=== PATIENT | female | born 1990 | race Caucasian/White ===

== ENCOUNTER 2017-03-26 13:54 | Emergency (ER) | payer MEDICAID, OTHER ==
[2017-03-26] MEDS ORDERED: NS 0.9% 1000 ML* 1,000 ML IV ONE (14:08)
[2017-03-26] MEDS ORDERED: Ondansetron INJ* 2 MG/ML VIAL IV ONE (14:08)
[2017-03-26 14:29] LABS: Hematocrit 40 % (35-47); Hemoglobin 13.3 g/dl (12.0-16.0); Mean Corpuscular HGB Conc 34 g/dl (31-36); Mean Corpuscular Hemoglobin 31 pg (27-31); Mean Corpuscular Volume 92 fL (80-97); Mean Platelet Volume 9 um3 (7.4-10.4); Red Blood Count 4.32 10^6/ul (4.0-5.4); Red Cell Distribution Width 13 % (10.5-15); White Blood Count 8.4 10^3/ul (3.5-10.8)
[2017-03-26 14:45] LABS: Albumin 4.5 g/dL (3.2-5.2); BUN/Creatinine Ratio 8.5 (8-20); Calcium 9.3 mg/dL (8.6-10.3); EGFR African American 106.8 (>60); Globulin 3.2 g/dL (2-4); Potassium 3.9 mmol/L (3.5-5.0); Total Bilirubin 0.4 mg/dL (0.2-1.0); Total Protein 7.7 g/dL (6.4-8.9)
--- NOTE | 2017-03-26 14:49 | RAD ---
HISTORY: Head trauma, scalp hematoma, headache COMPARISONS: None TECHNIQUE: Multiple contiguous axial CT scans were obtained of the head without intravenous contrast. FINDINGS: HEMORRHAGE/INFARCT: There is no hemorrhage or acute infarct. MASSES/SHIFT: There is no mass or shift. EXTRA-AXIAL SPACES: There are no extra-axial fluid collections. SULCI AND VENTRICLES: The sulci and ventricles are normal in size and position for the patient's stated age. CEREBRUM: There are no focal parenchymal abnormalities. BRAINSTEM: There are no focal parenchymal abnormalities. CEREBELLUM: There are no focal parenchymal abnormalities. VESSELS: The vessels are grossly normal. PARANASAL SINUSES: The paranasal sinuses are clear. ORBITS: The orbits are unremarkable. BONES AND SOFT TISSUE: There is minimal soft tissue swelling right frontal scalp OTHER: None IMPRESSION: NO ACUTE INTRACRANIAL PATHOLOGY.
[2017-03-26 15:03] VITALS: BP 124/72
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
== END 2017-03-26 15:36 | disposition home or self-care (01) ==
LOC: ED 13:54
DX: T40.1X1A Poisoning by heroin, accidental (unintentional), initial encounter (principal); T40.601A Poisoning by unspecified narcotics, accidental (unintentional), initial encounter; S00.03XA Contusion of scalp, initial encounter; R11.0 Nausea; R51 Headache; X58.XXXA Exposure to other specified factors, initial encounter; Y93.9 Activity, unspecified; Y92.9 Unspecified place or not applicable
CPT/HCPCS: 36415; 70450; 80053; 85027; 96374; 99282; J2405

== ENCOUNTER 2017-09-12 19:50 | Emergency (ER) | payer OTHER ==
[2017-09-12 19:54] VITALS: BP 142/72
--- NOTE | 2017-09-12 21:31 | RAD ---
HISTORY: Right knee pain, fall COMPARISONS: None VIEWS: 4, Frontal, lateral, axial, and oblique views of the right knee FINDINGS: BONE DENSITY: Normal. BONES: There is no displaced fracture. JOINTS: There is no arthropathy. There is no suprapatellar joint effusion or lipohemarthrosis. ALIGNMENT: There is no dislocation. SOFT TISSUES: Unremarkable. OTHER FINDINGS: None. IMPRESSION: NO ACUTE OSSEOUS INJURY. IF SYMPTOMS PERSIST, RECOMMEND REPEAT IMAGING.
--- NOTE | 2017-09-12 22:02 | ED ---
Lower Extremity - HPI Summary HPI Summary: 18 female presents with right knee pain since after a seizure. She states she has history of seizures. She denies any recent infection. She states she has been taking her gabapentin 3 times a day as prescribed. She states she has not had a seizure prior for a year. States she is weaning from Suboxone so may have caused seizure. She states she went down on her knee and her knee ended up behind her. She states when she ambulate she has pain on lateral and medial aspect of her knee. She states that her knee feels a little unstable. She denies any weakness. She denies any popping or locking. She denies any previous injury to the area. She denies any other injury. - History of Current Complaint Chief Complaint: EDExtremityLower Stated Complaint: RT KNEE INJURY Time Seen by Provider: 09/12/17 21:27 Pain Intensity: 4 - Allergies/Home Medications Allergies/Adverse Reactions: Allergies Allergy/AdvReac Type Severity Reaction Status Date / Time Penicillins Allergy Unknown Verified 09/12/17 19:55 Reaction Details Home Medications: Home Medications Gabapentin CAP(*) [Neurontin 400 mg CAP(*)] 800 mg PO TID 09/12/17 [History Confirmed 09/12/17] QUEtiapine TAB* [SEROquel TAB*] 100 mg PO BEDTIME 09/12/17 [History Confirmed ] buPROPion TAB* [Wellbutrin TAB*] 100 mg PO DAILY 09/12/17 [History Confirmed 07/28] cloNIDine TAB* [Catapres 0.1 MG TAB*] 0.1 mg PO DAILY 09/12/17 [History Confirmed 09/12/17] hydrOXYzine pamoate [Vistaril] 50 mg PO TID PRN 09/12/17 [History Confirmed 07/28] PMH/Surg Hx/FS Hx/Imm Hx Endocrine/Hematology History: Denies: Hx Diabetes Neurological History: Reports: Hx Seizures Psychiatric History: Reports: Other Psychiatric Issues/Disorders - Hx heroin overdoses Denies: Hx Eating Disorder, Hx of Violent Episodes Against Others Infectious Disease History: No Infectious Disease History: Denies: Traveled Outside the [place] in Last 30 Days - Family History Known Family History: Positive: Other - Substance abuse - Social History Alcohol Use: None Substance Use Type: Reports: Heroin Smoking Status (MU): Current Every Day Smoker Review of Systems Negative: Fever Negative: Chest Pain Negative: Shortness Of Breath Positive: Myalgia - right knee pain Neurological: Other - seizure All Other Systems Reviewed And Are Negative: Yes Physical Exam Triage Information Reviewed: Yes Vital Signs On Initial Exam: Initial Vitals Temp Pulse Resp BP Pulse Ox 99.1 F 99 13 142/72 100 09/12/17 19:52 09/12/17 19:52 09/12/17 19:52 09/12/17 19:52 09/12/17 19:52 Vital Signs Reviewed: Yes Appearance: Positive: Well-Appearing Skin: Positive: Warm, Dry Head/Face: Positive: Normal Head/Face Inspection Eyes: Positive: Normal, Conjunctiva Clear Respiratory/Lung Sounds: Positive: Clear to Auscultation, Breath Sounds Present Cardiovascular: Positive: Normal, RRR Musculoskeletal: Positive: Strength/ROM Intact - right knee, Other - good pulses , capillary refill<2 secs, tenderness over medial lateral aspect of the knee. Negative anterior drawer. pain with valgus and varus stress. Neurological: Positive: Normal Psychiatric: Positive: Normal Diagnostics - Vital Signs Vital Signs Temp Pulse Resp BP Pulse Ox 09/12/17 19:52 99.1 F 99 13 142/72 100 - Laboratory Lab Statement: Any lab studies that have been ordered have been reviewed, and results considered in the medical decision making process. - Radiology knee Xray Interpretation: No Acute Changes Radiology Interpretation Completed By: Radiologist Lower Extremity Course/Dx - Course Course Of Treatment: 18 female presents with right knee pain since after a seizure. She states she has history of seizures. She denies any recent infection. She states she has been taking her gabapentin 3 times a day as prescribed. She states she has not had a seizure prior for a year. States she is weaning from Suboxone so may have caused seizure. She states she went down on her knee and her knee ended up behind her. She states when she ambulate she has pain on lateral and medial aspect of her knee. She states that her knee feels a little unstable. She denies any weakness. She denies any popping or locking. She denies any previous injury to the area. patient declined any lab work for the seizures will have follow up with with primary about such. X-ray knee normal. Pain was about this and varus stress. Negative anterior drawer. Will follow up with ortho as may be meniscal injury. Told to keep the knee in immobilizer. Patient understands agrees with plan. - Diagnoses Differential Diagnosis/HQI/PQRI: Positive: Fracture (Closed), Sprain, Strain Provider Diagnoses: Seizure, Right knee injury Discharge - Sign-Out/Discharge Documenting (check all that apply): Discharge/Admit/Transfer - Discharge Plan Condition: Good Disposition: HOME Patient Education Materials: Knee Pain (ED) Referrals: Elise Nunez MD [Primary Care Provider] - Paola Mojica MD [Medical Doctor] - Additional Instructions: Follow up with primary about seizures Use immobilizer Stay off knee as much as possible Ice, elevate, Ibuprofen or Tylenol every 6 hours for pain Follow up with ortho if no improvement Return to ED if develop or any new or worsening symptoms - Billing Disposition and Condition Condition: GOOD Disposition: HOME
== END 2017-09-12 22:26 | disposition home or self-care (01) ==
LOC: ED 19:50
DX: S89.91XA Unspecified injury of right lower leg, initial encounter (principal); R56.9 Unspecified convulsions; F17.200 Nicotine dependence, unspecified, uncomplicated; Z88.0 Allergy status to penicillin
CPT/HCPCS: 99282

== ENCOUNTER 2018-01-20 11:37 | Emergency (ER) | payer OTHER ==
--- NOTE | 2018-01-20 13:33 | RAD ---
INDICATION: Fall; facial injury. COMPARISON: No relevant prior exams available on the [facility] [place] PACS for comparison. TECHNIQUE: Multidetector CT base of the skull through mandible without contrast. Multiplanar reformation. REPORT: Artifact from dental amalgam. RIGHT nasal bone fracture with approximate 1 mm depression. Overlying soft tissue swelling. The orbital and maxillary sinus margins, zygomatic arches, lamina papyracea, base of the maxilla, and pterygoid plates are intact. The mandible is intact. Normal temporal mandibular joint alignment. Degenerative arthropathy at the temporomandibular joints with subchondral sclerosis and cystic change. IMPRESSION: #. Minimally depressed RIGHT nasal bone fracture.
--- NOTE | 2018-01-20 13:46 | RAD ---
Indication: Fall with facial injury. Comparison: Maxillofacial CT of the same date and March 26, [address] Technique: Noncontrast CT vertex of skull through foramen magnum. Report: The sulci, ventricles, and basal cisterns are normal for age. Mack matter white matter differentiation is preserved without evidence for edema. No intra or extra axial hemorrhage is detected. Unremarkable visualized orbital contents. Negative for calvarial or skull base fracture. Negative for scalp hematoma. The visualized paranasal sinuses and mastoid air spaces are clear. IMPRESSION: #. No CT evidence for traumatic brain injury. Negative exam.
[2018-01-20 13:54] VITALS: BP 125/98
--- NOTE | 2018-01-20 15:17 | ED ---
Head Injury - HPI Summary HPI Summary: Patient is a 27-year-old female presenting to the ED 3 days after a facial injury. She states she had a seizure 3 days ago which was witnessed an approximately 5 minutes in length. She fell and hit the coffee table with her nose and arrives with ecchymosis around the bilateral eyes. She states this is her third witnessed seizure in the past year and a half. She has never been diagnosed with seizures. Family history of epilepsy, but she has never had seizures prior to the year and a half. She has never seen a neurologist. Patient states she takes Suboxone, but denies any other drug use. She states nothing changed over the past year and a half when she started getting seizures and are not related to her drug use as she has been on heroin and off heroin all all having the seizures. She states she feels well prior to having the seizures and states nothing makes them better or worse. She endorses some fatigue immediately following the probable seizure, but states feels otherwise well afterwards. Patient is a smoker, but denies any alcohol use. Facial injury from 3 days ago with bilateral nosebleed which lasted approximately 5 minutes, and has not returned over the past 3 days. - History Of Current Complaint Chief Complaint: EDFacialInjury Stated Complaint: FACIAL INJURY Time Seen by Provider: 01/20/18 11:57 Hx Obtained From: Patient Mechanism Of Injury: Blunt Trauma Onset/Duration: Started Days Ago Onset of Pain: Days Severity Currently: Moderate Severity Initially: Moderate Pain Intensity: 0 Pain Scale Used: 0-10 Numeric Location of Head Injury: Other: - nasal bones Character: Dull Aggravating Factor(s): Movement Alleviating Factor(s): Rest, Ice Associated Signs And Symptoms: Other: - seizure activity - Risk Factors SDH Risk Factor: Seizures - Allergies/Home Medications Allergies/Adverse Reactions: Allergies Allergy/AdvReac Type Severity Reaction Status Date / Time Penicillins Allergy Unknown Verified 01/20/18 11:56 Reaction Details Home Medications: Home Medications Buprenorphine HCl/Naloxone HCl [Suboxone 8 mg-2 mg Sl Film] 2 tab SL DAILY 01/20 [History Confirmed 01/20/18] Citalopram TAB* [CeleXA TAB*] 10 mg PO DAILY 01/20/18 [History Confirmed ] PMH/Surg Hx/FS Hx/Imm Hx Previously Healthy: Yes Endocrine/Hematology History: Denies: Hx Diabetes Neurological History: Reports: Hx Seizures Psychiatric History: Reports: Other Psychiatric Issues/Disorders - Hx heroin overdoses Denies: Hx Eating Disorder, Hx of Violent Episodes Against Others - Immunization History Hx Pertussis Vaccination: No Immunizations Up to Date: Yes Infectious Disease History: No Infectious Disease History: Denies: Traveled Outside the [place] in Last 30 Days - Family History Known Family History: Positive: Other - Substance abuse - Social History Occupation: Employed Full-time Lives: With Family Alcohol Use: Rare Hx Substance Use: Yes Substance Use Type: Reports: Prescribed, Other Substance Use Comment - Amount & Last Used: HX heroin, on Suboxone Hx Tobacco Use: Yes Smoking Status (MU): Current Every Day Smoker Review of Systems Constitutional: Negative Negative: Fever, Chills, Fatigue, Skin Diaphoresis Negative: Blurred Vision, Diplopia, Drainage Negative: Other - pain to the bridge of the nose Negative: Palpitations, Chest Pain Negative: Shortness Of Breath, Cough Genitourinary: Negative Positive: no symptoms reported, see HPI Negative: Arthralgia, Myalgia Positive: Bruising Neurological: Negative All Other Systems Reviewed And Are Negative: Yes Physical Exam Triage Information Reviewed: Yes Vital Signs On Initial Exam: Initial Vitals Temp Pulse Resp BP Pulse Ox 97.2 F 108 16 141/87 98 01/20/18 11:52 01/20/18 11:52 01/20/18 11:52 01/20/18 11:52 01/20/18 11:52 Vital Signs Reviewed: Yes Appearance: Positive: Well-Appearing, Well-Nourished Skin: Positive: Warm, Skin Color Reflects Adequate Perfusion, Other - bruising to the nose Head/Face: Positive: Normal Head/Face Inspection Eyes: Positive: EOMI, GREGOR, Conjunctiva Clear Neck: Positive: Supple Respiratory/Lung Sounds: Positive: Clear to Auscultation, Breath Sounds Present Cardiovascular: Positive: RRR, Pulses are Symmetrical in both Upper and Lower Extremities Musculoskeletal: Positive: Normal, Strength/ROM Intact Neurological: Positive: Sensory/Motor Intact, Alert, Oriented to Person Place, Time, Speech Normal Psychiatric: Positive: Normal, Affect/Mood Appropriate AVPU Assessment: Alert Diagnostics - Vital Signs Vital Signs Temp Pulse Resp BP Pulse Ox 01/20/18 13:53 97.2 F 80 16 125/98 100 09/10/18 11:52 97.2 F 108 16 141/87 98 - Laboratory Lab Statement: Any lab studies that have been ordered have been reviewed, and results considered in the medical decision making process. Head Injury Course/Dx Course Of Treatment: CT maxillofacial and CT brain obtained. CT brain without intracranial abnormalities. CT maxillofacial shows: Minimally depressed right nasal bone fracture. Discussed this with the patient. She will follow-up with ENT regarding the nasal bone fracture and I have Darvin encouraged her to follow up with neurology regarding her probable seizures over the past year and half. - Diagnoses Differential Diagnosis/HQI/PQRI: Contusion, Orbital Fracture, Zygomatic Fracture Provider Diagnoses: Nasal bone fracture Discharge - Sign-Out/Discharge Documenting (check all that apply): Patient Departure - Discharge Plan Condition: Stable Disposition: HOME Patient Education Materials: Nasal Fracture (ED) Referrals: Seferino Gutierrez MD [Medical Doctor] - Guanakito Bliss MD [Medical Doctor] - Elise Nunez MD [Primary Care Provider] - Additional Instructions: Please follow-up with neurology Please follow-up with ENT regarding nasal bone fracture Ice to the area - Billing Disposition and Condition Condition: STABLE Disposition: Home
== END 2018-01-20 13:53 | disposition home or self-care (01) ==
LOC: ED 11:37
DX: S02.2XXA Fracture of nasal bones, initial encounter for closed fracture (principal); F17.200 Nicotine dependence, unspecified, uncomplicated; W01.198A Fall on same level from slipping, tripping and stumbling with subsequent striking against other object, initial encounter; Y92.9 Unspecified place or not applicable
CPT/HCPCS: 70450; 70486; 99282